=== PATIENT | male | born 1995 | race Caucasian/White ===

== ENCOUNTER 2019-08-11 13:57 | Outpatient (CLI) | payer SELFPAY ==
[2019-08-11 15:30] LABS: BARBITURATE, URINE NEGATIVE (NEG <=200); BENZODIAZEPINE, URINE NEGATIVE (NEG <=150); CANNABINOID, URINE POSITIVE (NEG <=50); COCAINE, URINE NEGATIVE (NEG <=150); METHAMPHETAMINES SCREEN,URINE NEGATIVE (NEG <=500); OPIATE, URINE NEGATIVE (NEG <=100); PHENCYCLIDINE SCREEN,URINE NEGATIVE (NEG <=25); UR TRICYCLIC ANTIDEPRESSANTS NEGATIVE (NEG <=300); URINE AMPHETAMINE NEGATIVE (NEG <=500); URINE METHADONE NEGATIVE (NEG <=200); URINE OXYCODONE SCREEN NEGATIVE (NEG <=100); URINE PROPOXYPHENE SCREEN NEGATIVE (NEG <=300)
== END 2019-08-11 20:47 | disposition home or self-care (01) ==
LOC: SLB 13:57
PROVIDERS: ATTEND Specialist
DX: Z02.83 Encounter for blood-alcohol and blood-drug test (principal)
CPT/HCPCS: 80307

== ENCOUNTER 2022-01-14 20:36 | Emergency (ER) | payer MEDICAID, SELFPAY ==
[~2022-01-14] VITALS: Ht 160 cm; Wt 68.0 kg
[2022-01-14 20:48] VITALS: BP_SYST 136
--- NOTE | 2022-01-14 21:06 | NUR ---
Patient to ER bed CH1 to gown for evaluation. Side rails up. Report given to Glenny SIMON.
--- NOTE | 2022-01-14 21:07 | NUR ---
26 y/o M,ambulatory from home with c/o redness and pain to R ring finger since this am. Denies any injury/trauma to site. Arrived to ED in no acute distress.
--- NOTE | 2022-01-14 21:09 | NUR ---
ER at bedside examining patient.
[2022-01-14] MEDS ORDERED: IBUP-1969 PO (21:31)
[2022-01-14] MEDS ORDERED: CLIN-142 PO (21:31)
--- NOTE | 2022-01-14 21:39 | NUR ---
Patient given written and verbal discharge instructions and verbalizes understanding. ER MD Cardona discussed with patient the results. Patient in stable condition. ID arm band removed. Rx of Clindamycin and Ibuprofen sent to preferred pharmacy. Patient educated on pain management and to follow up with PMD. Opportunity for questions provided and answered. Medication side effect fact sheet provided.
[2022-01-14 21:41] VITALS: BP_SYST 123
== END 2022-01-14 21:40 | disposition home or self-care (01) ==
LOC: SED 20:36
DX: L03.012 Cellulitis of left finger (principal); Z79.899 Other long term (current) drug therapy
CPT/HCPCS: 99283